=== PATIENT | female | born 2000 | race Hispanic/Latino ===

== ENCOUNTER 2025-09-08 06:18 | Emergency (ER) | payer BC ==
[~2025-09-08] VITALS: Ht 160 cm; Wt 68.0 kg
[2025-09-08] MEDS: KETOROLAC TROMETHAMINE 30 MG/ML VIAL IV STA (07:28)
[2025-09-08] MEDS ORDERED: CYCLOBENZAPRINE5 MG PO (08:59)
[2025-09-08 09:15] VITALS: PULSE 72; RESP 18; TEMP 97.8; O2SAT 98
== END 2025-09-08 09:15 | disposition home or self-care (01) ==
LOC: FSED 06:37
DX: R07.89 Other chest pain (principal)
CPT/HCPCS: 71046; 80053; 81025; 84484; 85025; 85379; 93005; 96375; 99284; J1885